=== PATIENT | male | born 1950 | race Caucasian/White ===

== ENCOUNTER 2020-12-07 14:30 | Observation (INO) ==
[2020-12-07] MEDS ORDERED: EPINEPHrine 1 MG/ML VIAL IM PRN (15:13)
[2020-12-07] MEDS ORDERED: Acetaminophen 325 MG TABLET PO PRN (15:13)
[2020-12-07] MEDS ORDERED: Ondansetron 4 MG/2 ML VIAL IVP PRN ×2 (15:13→20:42)
[2020-12-07] MEDS ORDERED: Bamlanivimab 700 MG, Etesevimab 1,400 MG in 0.9 % Sodium Chloride 100 ML IVPB ONE (15:13)
[2020-12-07] MEDS ORDERED: methylPREDNISolone 125 MG/2 ML VIAL IVP PRN (15:13)
[2020-12-07] MEDS ORDERED: Ipratropium 1 PUFF INHALER IH PRN (20:42)
[2020-12-07] MEDS ORDERED: Naloxone 0.4 MG/ML INJ IVP PRN (20:42)
[2020-12-07 21:14] LABS: Basophils % 0.4 %; Eosinophils % 0.4 %; Immature Granulocytes % 0.4 % (0-4); Immature Platelets 3.2 % (1.1-6.1); Lymphocytes # 0.8 K/mcL (0.6-4.6); Lymphocytes % 26.8 %; Mean Corpuscular HGB Conc 34.1 g/dL (31.6-35.5); Mean Corpuscular Hemoglobin 31.7 pg (28.0-33.3); Mean Platelet Volume 10.1 fL (9.4-12.4); Monocytes # 0.3 K/mcL (0.0-1.3); Monocytes % 9.2 %; Neutrophils # 1.8 K/mcL (1.6-8.9); Red Blood Count 4.41 M/mcL (4.19-5.50); Red Cell Distribution Width 12.6 % (11.5-14.5); Segmented Neutrophils % 62.8 %; White Blood Count 2.8 K/mcL (4.3-11.1)
[2020-12-07 21:25] LABS: INR 1.2; Prothrombin Time 13.6 Seconds (9.4-12.1)
[2020-12-07 21:28] LABS: Activated Partial Thrombo Time 34.1 Seconds (26.0-36.0)
[2020-12-07 21:37] LABS: Alanine Aminotransferase 21 Units/L (7-52); Albumin 3.7 g/dL (3.5-5.7); Albumin/Globulin Ratio 1.5 (1.1-2.2); Alkaline Phosphatase 82 Units/L (34-104); Aspartate Amino Transferase 41 Units/L (13-39); BUN/Creatinine Ratio 15 (6-26); Bilirubin,Total 0.6 mg/dL (0.3-1.0); Blood Urea Nitrogen 15 mg/dL (8-23); Calcium 8.3 mg/dL (8.6-10.3); Carbon Dioxide 26 mEq/L (23-29); Chloride 103 mEq/L (98-107); Creatine Kinase 363 Units/L (30-223); Globulin 2.4 g/dL (2.4-3.5); Glucose 112 mg/dL (70-105); Osmolality,Calculated 290 (280-300); Potassium 3.8 mEq/L (3.5-5.1); Sodium 139 mEq/L (136-145); Total Protein 6.1 g/dL (6.4-8.9); eGFR For African Americans > 60 (> 60); eGFR For Non-African Americans > 60 (> 60)
[2020-12-07 22:05] LABS: Platelet Count 88 K/mcL (140-400)
[2020-12-07 22:06] LABS: Platelet Estimate Slight Decrease (Normal); Reactive Lymphocytes Present (Not Present)
[2020-12-07] MEDS ORDERED: Benzonatate 100 MG CAPSULE PO PRN (23:46)
[2020-12-08 01:37] LABS: Hematocrit 41.4 % (37.5-50.1); Hemoglobin 14.1 g/dL (12.9-16.9); Immature Platelets 3.4 % (1.1-6.1); Mean Corpuscular HGB Conc 34.1 g/dL (31.6-35.5); Mean Corpuscular Hemoglobin 31.6 pg (28.0-33.3); Mean Corpuscular Volume 92.8 fL (83.0-100.0); Mean Platelet Volume 10.3 fL (9.4-12.4); Red Blood Count 4.46 M/mcL (4.19-5.50); Red Cell Distribution Width 12.6 % (11.5-14.5); White Blood Count 3.8 K/mcL (4.3-11.1)
[2020-12-08 01:57] LABS: BUN/Creatinine Ratio 17 (6-26); Blood Urea Nitrogen 16 mg/dL (8-23); Calcium 8.3 mg/dL (8.6-10.3); Carbon Dioxide 28 mEq/L (23-29); Chloride 104 mEq/L (98-107); Glucose 119 mg/dL (70-105); Osmolality,Calculated 288 (280-300); Potassium 4.2 mEq/L (3.5-5.1); Sodium 138 mEq/L (136-145); eGFR For African Americans > 60 (> 60); eGFR For Non-African Americans > 60 (> 60)
[2020-12-08 02:15] LABS: Ferritin 310 ng/mL (20-250)
[2020-12-08 02:16] LABS: C-Reactive Protein 171 mg/L (Less than 10)
[2020-12-08] MEDS: *HR* Enoxaparin 40 MG/0.4 ML SYRINGE SQ SCH (04:57)
[2020-12-08] MEDS ORDERED: Remdesivir 200 MG in 0.9 % Sodium Chloride 100 ML IVPB ONE (07:51)
[2020-12-08] MEDS ORDERED: allopurinoL 300 MG TABLET PO SCH (09:00)
[2020-12-08] MEDS: atenoloL 50 MG TABLET PO SCH (10:11)
[2020-12-08] MEDS: Cholecalciferol (D-3) 1,000 UNIT (25MCG) TABLET PO SCH (10:11)
[2020-12-08] MEDS: Ipratropium 1 PUFF INHALER IH SCH ×3 (10:44→22:33)
[2020-12-08] MEDS ORDERED: allopurinoL 300 MG TABLET PO ONE (22:38)
[2020-12-09] MEDS: Ipratropium 1 PUFF INHALER IH SCH ×2 (04:29→10:14)
[2020-12-09 05:11] LABS: Albumin 3.5 g/dL (3.5-5.7); Albumin/Globulin Ratio 1.3 (1.1-2.2); Bilirubin,Direct 0.1 mg/dL (0.0-0.2); Bilirubin,Indirect 0.5 mg/dL (0.0-1.0); Bilirubin,Total 0.6 mg/dL (0.3-1.0); Globulin 2.8 g/dL (2.4-3.5); Total Protein 6.3 g/dL (6.4-8.9)
[2020-12-09] MEDS: *HR* Enoxaparin 40 MG/0.4 ML SYRINGE SQ SCH (06:42)
[2020-12-09] MEDS ORDERED: Remdesivir 100 MG in 0.9 % Sodium Chloride 100 ML IVPB SCH (08:00)
[2020-12-09 08:26] VITALS: PULSE 66
[2020-12-09] MEDS: atenoloL 50 MG TABLET PO SCH (08:45)
[2020-12-09] MEDS: Cholecalciferol (D-3) 1,000 UNIT (25MCG) TABLET PO SCH (08:45)
[2020-12-09 12:22] VITALS: BP 133/83; TEMP 98.2
[2020-12-09 14:10] VITALS: O2SAT 90
[2020-12-09] MEDS ORDERED: Acetaminophen 325 MG TABLET PO PRN (14:46)
== END 2020-12-09 16:52 | disposition home or self-care (01) ==
LOC: EMEROOARM 14:30 → 3BNU 14:30 → SUATTDRO 20:37 → 3BNU 21:19
PROVIDERS: ADMIT Internal Medicine; ATTEND Family Medicine